=== PATIENT | male | born 1980 | race Caucasian/White ===

== ENCOUNTER → 2019-12-12 09:57 | Outpatient (BNVA) | payer BC, SELFPAY | PROVIDERS: Referring Provider Family Medicine; Visit Provider Podiatrist Foot & Ankle Surgery | DX: M79.672 Pain in left foot (principal) | CPT/HCPCS: 73620; 73630 ==

== ENCOUNTER 2019-12-30 10:09 | Outpatient (REF) | payer BC, SELFPAY ==
[2019-12-30 13:24] LABS: Estmated Average Glucose 114; Hemoglobin A1C 5.6 % (4.0-6.0)
[2019-12-30 13:27] LABS: Chol HDL Ratio 5.88 mg/dL (1.0-5.00); Cholesterol 247 mg/dL (0-200); Glucose 99 mg/dL (65-115); HDL Cholesterol 42 mg/dL (60-100); LDL Cholesterol Calculated 179 mg/dL (50-129); LDL HDL Ratio 4.26 RATIO (0.00-3.22); Triglycerides 128 mg/dL (0-150)
== END 2019-12-30 10:10 | disposition home or self-care (01) ==
LOC: LAB 10:09
PROVIDERS: Visit Provider Dermatology
DX: Z01.89 Encounter for other specified special examinations (principal)
CPT/HCPCS: 80061; 82947; 83036